=== PATIENT | male | born 1990 | race Asian ===

== ENCOUNTER 2019-01-14 20:55 | Emergency (ER) | payer BC ==
[~2019-01-14] VITALS: Ht 170.2 cm; Wt 60.0 kg
[2019-01-14] MEDS ORDERED: METHYLPREDNISOLONE SOD SUCC 125 MG/2 ML VIAL IV ONE (23:30)
[2019-01-14] MEDS ORDERED: DIPHENHYDRAMINE 50MG/ML VIAL IV ONE (23:30)
[2019-01-15 00:47] VITALS: BP 102/57
== END 2019-01-15 00:53 | disposition home or self-care (01) ==
LOC: ER 20:55
DX: T78.1XXA Other adverse food reactions, not elsewhere classified, initial encounter (principal); Z91.013 Allergy to seafood; X58.XXXA Exposure to other specified factors, initial encounter
CPT/HCPCS: 96374; 96375; 99283; J1200; J2930; Z7610